=== PATIENT | female | born 1970 | race Caucasian/White ===

== ENCOUNTER → 2019-04-22 | Outpatient (CLI) | payer OTHER, SELFPAY ==
--- NOTE | 2019-04-21 14:30 | EMB_PTH ---
PATIENT: BRANDT KENNY LOC: PATIENCE U#:[id number] AGE/SX: 48/F ROOM: RE04/22/[address]: Dr. Andrew Lau MD : 1970 BED: DIS: 04/22/2019 SPEC #: [id number] RECD: 04/22/19 11:00 STATUS: KALEY LESLI #: [id number] BETHANIE: 04/21/19 14:[address]: Andrew Lau DEPT: SURGICAL PATHOLOGY RECD BY: Steve Weaver Tissues: Endometrium, NOS Procedures: Surgery Specimen Level IV HEADER OPERATION: Endometrial biopsy PRE-OP DIAGNOSIS: N92.0 TISSUE SUBMITTED: Endometrial biopsy MICROSCOPIC DIAGNOSIS Endometrium, biopsy: Secretory endometrium. AM:esha 04/23/19 MICROSCOPIC DESCRIPTION Slides are reviewed. GROSS DESCRIPTION Received in fixative is one container labeled with the patient's name and designated EM biopsy. The specimen consists of multiple irregular fragments of herman-pink soft tissue that in aggregate measure 2.5 x 2 x 0.2 cm. The specimen is totally submitted in one cassette. / SJ:rg 04/22/19 TC:5 CPT: 65982
== END | disposition home or self-care (01) ==
LOC: LABSPEC 11:21
PROVIDERS: Referring Provider Obstetrics & Gynecology; Visit Provider Obstetrics & Gynecology
DX: N85.8 Other specified noninflammatory disorders of uterus (principal); N92.0 Excessive and frequent menstruation with regular cycle
CPT/HCPCS: 88305

== ENCOUNTER → 2021-02-28 | Outpatient (CLI) | payer OTHER, SELFPAY ==
--- NOTE | 2021-02-28 | EMB_PTH ---
PATIENT: BRANDT KENNY LOC: PATIENCE U#:[id number] AGE/SX: 50/F ROOM: RE02/28/[address]: Dr. Andrew Lau MD : 1970 BED: DIS: 02/28/2021 SPEC #: [id number] RECD: 02/28/21 14:27 STATUS: KALEY LESLI #: [id number] BETHANIE: 02/28/21 00:[address]: Andrew Lau DEPT: SURGICAL PATHOLOGY RECD BY: Froylan Espinosa ENTERED: 03/01/21 08:49 SP TYPE: ENDOM BX/C CARYN DR: MALLIKA Loza Tissues: Endometrium, NOS Procedures: Surgery Specimen Level IV HEADER OPERATION: Endometrial biopsy PRE-OP DIAGNOSIS: N93.9 TISSUE SUBMITTED: Endometrial biopsy MICROSCOPIC DIAGNOSIS Endometrium, biopsy: Proliferative endometrium. Chronic endometritis. AM:esha 03/02/2021 MICROSCOPIC DESCRIPTION Slides are reviewed. GROSS DESCRIPTION Received in fixative is one container labeled with the patient's name and designated endometrial biopsy. The specimen consists of multiple irregular fragments of light to dark herman soft tissue that in aggregate measure 3 x 1 x 0.1 cm. The specimen is totally submitted in one cassette. / AM:esha 03/01/21 TC:3 CPT: 18630
[2021-03-08 13:44] LABS: HPV Reflexed? NOT INDICATED
== END | disposition home or self-care (01) ==
LOC: LABSPEC 14:01
PROVIDERS: PCP Physician Assistant; Visit Provider Obstetrics & Gynecology
DX: N71.9 Inflammatory disease of uterus, unspecified (principal); Z12.4 Encounter for screening for malignant neoplasm of cervix; N93.9 Abnormal uterine and vaginal bleeding, unspecified
CPT/HCPCS: 88175; 88305; G0145